=== PATIENT | female | born 1995 | race Caucasian/White ===

== ENCOUNTER 2018-07-30 10:49 | Inpatient (IN) | payer OTHER ==
[~2018-07-30] VITALS: Ht 167.6 cm; Wt 95.3 kg
--- NOTE | 2018-07-30 10:49 | NUR ---
PATIENT BIBA TO BED 5 AT THIS TIME.
[2018-07-30 10:53] VITALS: BP 120/69
--- NOTE | 2018-07-30 10:53 | NUR ---
PT VERBALIZES NO INTENT TO HURT ONESELF
--- NOTE | 2018-07-30 10:53 | NUR ---
23 Y F BIBA PER HONE OPERATOR PT SNORTED 30MG OXYCODONE WITH FRIEND. UPON ARRIVAL ONSEEN PT WAS APNEC, BAG MASK PT GAVE 2 NARCAN, PT RESPONDED WELL. 20 G R AC. PT VOMITED IN ROUTE AND 4 MG ZOFRAN GIVEN. PT AA0X4, CLEAR SPEECH, PERRLA, PUPILS 2MM, GCS 15. PT STARTED ON 2 L O2 NC. 95 O2 AT THIS TIME. UNABLE TO GIVE URINE AT THIS TIME. BED IS DOWN, LOCKED, BED RAIL X 1, ERMD NOTIFIED. MEDHX:NONE RX:NONE ALLERGIES: NONE
--- NOTE | 2018-07-30 11:05 | NUR ---
DR TAVAREZ AT BEDSIDE
[2018-07-30 11:35] LABS: BASOPHILS % (AUTO) 0.3 % (0.0-2.0); EOSINOPHILS % (AUTO) 0.5 % (0.0-4.0); HEMATOCRIT 35.6 % (36-48); HEMOGLOBIN 11.4 g/dL (12.0-16.0); LYMPHOCYTES # (AUTO) 1.9 K/uL (2.5-16.5); LYMPHOCYTES % (AUTO) 23.2 % (20.5-51.1); MEAN CORPUSCULAR HEMOGLOBIN 27 pg (27-31); MEAN CORPUSCULAR HGB CONC 32 g/dL (33-37); MEAN CORPUSCULAR VOLUME 83.1 fL (80-94); MONOCYTES # (AUTO) 0.5 K/uL (0.8-1.0); MONOCYTES % (AUTO) 6.2 % (1.7-9.3); NEUTROPHILS # (AUTO) 5.8 K/uL (1.8-7.7); NEUTROPHILS % (AUTO) 69.8 % (42.2-75.2); PLATELET COUNT (AUTO) 227 K/uL (140-450); RED BLOOD CELL COUNT(AUTO) 4.28 MIL/uL (4.20-5.40); WHITE BLOOD COUNT (AUTO) 8.3 K/uL (4.8-10.8)
--- NOTE | 2018-07-30 11:36 | NUR ---
PT PUT ON BED LOCKE, WAS UNABLE TO URINATE. PER DR ORDER PT WAS STRIGHTCATHED. STILL NO URINE.
[2018-07-30 11:49] LABS: ANION GAP 15.5 (8-16); CREATININE 0.9 mg/dL (0.6-1.3); POTASSIUM 3.5 mmol/L (3.5-5.1)
[2018-07-30 11:55] LABS: ALBUMIN 3.1 g/dL (3.4-5.0); TOTAL BILIRUBIN 0.3 mg/dL (0.0-1.0)
--- NOTE | 2018-07-30 12:05 | NUR ---
URINE COLLECTED VIA STRAIGHT CATH
[2018-07-30 12:17] LABS: APPEARANCE,URINE CLEAR (CLEAR); BILIRUBIN,URINE NEGATIVE (NEGATIVE); BLOOD, URINE NEGATIVE (NEGATIVE); COLOR,URINE YELLOW (YELLOW); LEUKOCYTE ESTERASE ,URINE NEGATIVE (NEGATIVE); NITRITE, URINE NEGATIVE (NEGATIVE); UGLUCOSE NEGATIVE (NEGATIVE)
[2018-07-30 12:25] LABS: BARBITURATE, URINE NEG. ng/ml (NEG <=200); BENZODIAZEPINE, URINE NEG. ng/mL (NEG <=200); CANNABINOID, URINE POS. ng/mL (NEG <=50); COCAINE, URINE NEG. ng/mL (NEG <=300); OPIATE, URINE NEG. ng/mL (NEG <=2000); PHENCYCLIDINE SCREEN,URINE NEG. ng/mL (NEG <=25)
--- NOTE | 2018-07-30 13:34 | NUR ---
Pt transferred to Tele via bed with francy guillen .
[2018-07-30 13:35] VITALS: BP 113/67
--- NOTE | 2018-07-30 13:35 | NUR ---
RECEIVED REPORT FROM ER NURSE ANDREW. PATIENT IS AOX4. DENIES PAIN. ON 2L/MIN NC. NO SIGNS OF DISTRESS NOTED. ABLE TO FOLLOW COMMANDS AND MAKE NEEDS KNOWN. IV ON R AC 20G, INTACT AND CLEAN, SALINE LOCK. SKIN CLEAN AND DRY. ABLE TO AMBULATE WITH STEADY GAIT. ORIENTED PATIENT TO THE ROOM, ON HOW TO USE THE CALL LIGHT, BED REMOTE, TV, LIGHT AND BATHROOM. PATIENT ACKNOWLEDGED AND WAS AWARE. DISCUSSED PLAN OF CARE WITH PATIENT, AND PATIENT VERBALIZED UNDERSTANDING. VITAL SIGNS TAKEN. MRSA TAKEN. INSTRUCTED PATIENT TO USE THE CALL LIGHT FOR ASSISTANCE. PATIENT VERBALIZED UNDERSTANDING. BED IN LOW POSITION, AND CALL LIGHT WITHIN REACH.
--- NOTE | 2018-07-30 13:40 | NUR ---
Patient will be admitted to care of DR CARRENO. Admited to TELE. Will go to room 121 A. Belongings list completed. Report to NEGRITO RUFFIN.
--- NOTE | 2018-07-30 15:35 | NUR ---
PATIENT IS SLEEPING ON BED AT THIS TIME. NO SIGNS OF DISTRESS NOTED. TELE MONITOR ATTACHED. BED IN LOW POSITION AND CALL LIGHT WITHIN REACH.
[2018-07-30 16:00] VITALS: BP 108/60
--- NOTE | 2018-07-30 16:50 | NUR ---
DR CARRENO IS TALKING TO PATIENT AT BEDSIDE. NO SIGNS OF DISTRESS NOTED.
--- NOTE | 2018-07-30 17:20 | NUR ---
PATIENT IS AMBULATING AROUND THE FULLER WAY WITH A STEADY GAIT. NO SIGNS OF DISTRESS NOTED.
--- NOTE | 2018-07-30 18:10 | NUR ---
PATIENT REFUSED TO GET FLU VACCINE AND STATED THAT "IF I WANT TO GET IT, I CAN GET IT FROM MY FAMILY DOCTOR. I JUST WANT TO GO HOME NOW." VACCINE EDUCATION PROVIDED. AND PATIENT VERBALIZED UNDERSTANDING.
--- NOTE | 2018-07-30 18:25 | NUR ---
DISCHARGE INSTRUCTION PROVIDED TO PATIENT IN PREFERRED LANGUAGE [employer]. PATIENT CHANGED INTO STREET [employer]OTH[employer]. EDUCATED PATIENT ON SIGNS AND SYMPTOMS, DISEASE MANAGEMENT, DIET REGIMEN, FOLLOW UP WITH MD, AND GO TO THE NEAREST EMERGENCY ROOM OR CALL 911 IF EXPERIENCING PAIN, FEVER, SWELLING, AND OR SYMPTOMS WORSE IMMEDIATELY. PATIENT VERBALIZED UNDERSTANDING. D/C IV AND CANNULA INTACT, NO BLEEDING AT INSERT SITE. REMOVED ALL ARMBANDS. ESCORTED PATIENT TO THE LOBBY. PATIENT IS IN A STABLE CONDITION. PATIENT IS DISCHARGE AT THIS TIME
--- NOTE | 2018-08-01 12:45 | NUR ---
CALLED DR. MOOKIE MONTOYA'S OFFICE AND SPOKE WITH THANG. MADE FOLLOW UP APPOINTMENT FOR 08/05/18 AT 1045:[address] [place] [address] PHONE [phone]. I CALLED CHELSEA, CELL PHONE [phone] AND INFORMED HER. SHE SAID SHE ISN'T SURE IF SHE STILL HAS INSURANCE. I TOLD HER TO SPEAK WITH THANG AT THE OFFICE. Addendum: 08/01/18 at 1325 by Kellie Serra CM PER REQUEST FROM THANG FROM DR. MONTOYA'S OFFICE, FAXED CLINICAL INFORMATION TO DR. MURPHY' OFFICE,
== END 2018-07-30 18:25 | disposition home or self-care (01) | DRG 812 ==
LOC: MED 10:49 → MTU 12:52
PROVIDERS: ADMIT Internal Medicine Pulmonary Disease; ATTEND Internal Medicine Pulmonary Disease
DX: T40.2X1A Poisoning by other opioids, accidental (unintentional), initial encounter (principal); E44.1 Mild protein-calorie malnutrition; F12.90 Cannabis use, unspecified, uncomplicated; G47.33 Obstructive sleep apnea (adult) (pediatric); Y92.89 Other specified places as the place of occurrence of the external cause
CPT/HCPCS: 36415; 80053; 80305; 81003; 85025; 99285; C1758